=== PATIENT | male | born 1955 | race Caucasian/White ===

== ENCOUNTER 2017-02-24 16:45 | Emergency (ER) | payer OTHER ==
--- NOTE | ~2017-02-24 | ER ---
PATIENT'S NAME: CHRIS TOLEDO [facility] AGE: 61 Y [address] ROOM: [place] [address] LOCATION: [facility] ADMIT DATE: 02/24/2017 ER/Outpatient Report DISCHARGE DATE: 02/24/2017 FAMILY PHYSICIAN: Physician, Unknown ATTENDING PHYSICIAN: Jax Clifford TIME OF ARRIVAL: 1643 hours. TIME OF EXAM: 1643 hours. CHIEF COMPLAINT: Ground level fall. HISTORY OF PRESENT ILLNESS: Family reports the patient has a history of lung CA with metastasis to the brain that they found out on the MRI yesterday. He has been getting weaker for the last week and today when he went to get up he fell landing on his knees and the was unable to get him up. Denies hitting his head. Did not have any loss of consciousness. Has abrasions to knees. He reports he has also been having some generalized abdominal pain, but that is not new for him, he has had that since he was diagnosed back in July. ALLERGIES: NO KNOWN ALLERGIES. CURRENT MEDICATIONS: Current medications are on the chart and were reviewed by me. PAST MEDICAL HISTORY: Stage IV small-cell lung cancer that he has received chemotherapy for and is now getting radiation with metastases to the brain, per the MRI, he had done at [facility] in [place] yesterday, hypertension, and hiatal hernia. PAST SURGERIES: Sinus surgery. SOCIAL HISTORY: He lives in [place] with his and family. He does smoke a pack per day. Denies use of drugs and alcohol. [facility] is his primary provider. REVIEW OF SYSTEMS: All negative other than those mentioned in the HPI. PATIENT'S NAME: CHRIS TOLEDO [facility] AGE: 61 Y [address] ROOM: [place], [place] [address] LOCATION: [facility] ADMIT DATE: 02/24/2017 ER/Outpatient Report DISCHARGE DATE: 02/24/2017 FAMILY PHYSICIAN: Physician, Unknown ATTENDING PHYSICIAN: Jax Clifford PHYSICAL EXAMINATION: VITAL SIGNS: Blood pressure was 132/91, pulse of 100, respirations 20, temp of 97.9, tympanic, and O2 sat was 92% on room air. Rabia Coma Scale is 13. HEENT: He opens his eyes to voice. His speech is disoriented at time, but has normal motor movements. He is able to state his name, but he cannot say exactly what happened today. He denies having pain anywhere other than his knees. Pupils are equal and reactive to light. Extraocular movement is intact. He does follow directions. LUNGS: Sounds are clear throughout. HEART: Regular rate and rhythm. ABDOMEN: Soft and nondistended. Bowel sounds are present. He is tender in the left lower quadrant area. EXTREMITIES: He has abrasions to his bilateral knees. Strong pedal pulses. No peripheral edema noted. LABORATORY DATA: Lab work was drawn. CBC is within normal limits. Chem panel, alk phos is elevated at 179, but otherwise normal limits, amylase was 31 with a lipase of 140, lactate was 2.9, and procalcitonin was 0.1. Three-way abdomen was completed. He does have diffuse bowel pattern. No obstruction noted. X-rays of the knees bilaterally was completed. No acute bony abnormality is seen. EMERGENCY DEPARTMENT COURSE: The patient rested comfortably on the cart. Did not have increase in pain. He was able to stand up and ambulate around the bed without increase in pain. He states he is feeling better. Family is here. IMPRESSION: Ground level fall to his knees with abrasions to his knees. PLAN: Home, rest. He has appointment tomorrow with the oncologist. Encouraged them to keep that appointment. Return to the ER as needed. Family verbalized understanding. KEVIN MIRANDA APRN FOR MD DINORAH ASKEW/[email or web address] /[id number] d: 02/25/17 0201 t: 03/01/17 0750, OUTPATIENT REPORT
[2017-02-24 17:17] LABS: HEMATOCRIT 39.8 % (37.0-53.0); HEMOGLOBIN 13.9 g/dL (12.0-17.0); MCHC 34.9 gm/dL (32.0-36.5); MCV 97.3 fl (83.0-98.0); MPV 10.8 fl (9.4-12.4); PLATELET COUNT 222 K/uL (150-450); RBC 4.09 M/uL (4.00-6.00); RDW-CV 14.8 % (11.9-14.6); WBC 8.9 K/uL (4.0-11.0)
[2017-02-24 17:35] LABS: ALBUMIN 3.8 gm/dL (3.5-5.0); ANION GAP 11.1 (10.0-19.0); CALCIUM 9.4 mg/dL (8.5-10.5); POTASSIUM 4.1 mMol/L (3.7-5.1); TOTAL BILIRUBIN 0.5 mg/dL (0.0-1.5); TOTAL PROTEIN 6.9 g/dL (6.0-8.4)
[2017-02-24 17:46] LABS: ABSOLUTE NEUTROPHIL CT (ANC) 8.5 K/uL (1.4-9.0); LYMPHOCYTE # 0.1 K/uL (0.8-4.0); LYMPHOCYTE % 1 %; MONOCYTE # 0.2 K/uL (0.0-1.0); SEGMENTED NEUTROPHIL # 8.5 K/uL (1.4-9.0); SEGMENTED NEUTROPHIL % 96 %
== END 2017-02-24 18:55 | disposition disaster alternative care site (69) ==
LOC: GACC 16:45
PROVIDERS: Nurse Practitioner Family
DX: S80.211A Abrasion, right knee, initial encounter (principal); S80.212A Abrasion, left knee, initial encounter; C79.31 Secondary malignant neoplasm of brain; C34.90 Malignant neoplasm of unspecified part of unspecified bronchus or lung; F17.210 Nicotine dependence, cigarettes, uncomplicated; Z79.2 Long term (current) use of antibiotics; Z79.891 Long term (current) use of opiate analgesic; Z79.899 Other long term (current) drug therapy; W18.30XA Fall on same level, unspecified, initial encounter